=== PATIENT | female | born 1950 ===

== ENCOUNTER 2018-08-08 07:43 | Emergency (ER) | payer MEDICARE, MEDICAID ==
[2018-08-08 07:43] VITALS: BMI 30.4
[2018-08-08 08:10] VITALS: RESP 18; TEMP 100.3
--- NOTE | 2018-08-08 08:39 | C.PDOC ---
History Of Present Illness 67 Y/O FEMALE PRESENTS TO ED WITH C/O SUPRAPUBIC PAIN AND DYSURIA FOR "SEVERAL DAYS" ASSOCIATED WITH LOWER BACK PAIN FOR 1 WEEK AND SUBJECTIVE FEVER. PATIENT ALSO REPORTS NAUSEA AND DENIES DIARRHEA, VOMITING, HEMATURIA, URINARY FREQUENCY OR ANY OTHER COMPLAINTS AT THIS TIME. SUPRAPUB PAIN, DYSURIA X SEV DAYS, LBP X 1 WK. +SUBJ FEVER. +NAUSEA. PSH NEG ABD. EXAM NONTOXIC ABD +SUPRAPUB TEND MOD SOFT NO R/G REMAINDER NEG Time Seen by Provider: 08/08/18 08:15 Chief Complaint (Nursing): Abdominal Pain History Per: Patient History/Exam Limitations: no limitations Onset/Duration Of Symptoms: Days Current Symptoms Are (Timing): Still Present Quality Of Discomfort: "Pain" Past Medical History Reviewed: Historical Data, Nursing Documentation, Vital Signs Vital Signs: Last Vital Signs Temp 100.3 F H 08/08/18 08:06 Pulse 85 08/08/18 08:06 Resp 18 08/08/18 08:06 BP 112/61 08/08/18 08:06 Pulse Ox 96 08/08/18 08:06 - Medical History PMH: Asthma (NO MEDS; NO INHALER), Diabetes, HTN, Hypercholesterolemia Surgical History: CABG, Coronary Stent - [facility] Procedures ESOPHAGOGASTRODUODENOSCOPY [EGD] W/CLOSED BIOPSY (07/18/13) Family History: States: No Known Family Hx - Social History Hx Tobacco Use: No Hx Alcohol Use: No Hx Substance Use: No - Immunization History Hx Tetanus Toxoid Vaccination: No Hx Influenza Vaccination: No Hx Pneumococcal Vaccination: No Review Of Systems Constitutional: Positive for: Fever. Negative for: Chills Gastrointestinal: Positive for: Abdominal Pain. Negative for: Nausea, Vomiting Genitourinary: Positive for: Dysuria. Negative for: Frequency, Hematuria, Vaginal Discharge, Vaginal Bleeding Musculoskeletal: Positive for: Back Pain Physical Exam - Physical Exam Appears: Non-toxic, No Acute Distress Skin: Warm, Dry, No Rash Head: Atraumatic, Normacephalic Eye(s): bilateral: Normal Inspection Oral Mucosa: Moist Neck: Supple Cardiovascular: Rhythm Regular Respiratory: Normal Breath Sounds, No Rales, No Rhonchi, No Wheezing Gastrointestinal/Abdominal: Soft, Tenderness (suprapubic), No Guarding, No Rebound Back: No CVA Tenderness Neurological/Psych: Oriented x3, Normal Speech, Normal Cognition ED Course And Treatment - Laboratory Results Result Diagrams: 08/08/18 08:47 08/08/18 08:47 O2 Sat by Pulse Oximetry: 96 (RA) Pulse Ox Interpretation: Normal Disposition Counseled Patient/Family Regarding: Studies Performed, Diagnosis, Need For Followup, Rx Given - Disposition Referrals: YOUR,PMD [Other] Disposition: HOME/ ROUTINE Disposition Time: 09:33 Condition: IMPROVED Prescriptions: Amoxicillin/Clavulanate [Augmentin 875 MG-125 MG] 1 tab PO BID #28 tab Ibuprofen [Motrin] 600 mg PO Q6 #30 tab Phenazopyridine HCl [Pyridium] 200 mg PO BID #6 tablet Instructions: Kidney Infection (DC) Forms: [facility] [facility] (Filipino) - Clinical Impression Clinical Impression: UTI (urinary tract infection) - Scribe Statement The provider has reviewed the documentation as recorded by the Scribwade Sewell All medical record entries made by the Scribe were at my direction and personally dictated by me. I have reviewed the chart and agree that the record accurately reflects my personal performance of the history, physical exam, m edical decision making, and the department course for this patient. I have also personally directed, reviewed, and agree with the discharge instructions and disposition.
[2018-08-08 08:52] LABS: BASO # 0.1 K/uL (0.0-0.2); BASO % 0.9 % (0.0-2.0); EOS % 0.1 % (0.0-4.0); HEMOGLOBIN 12.3 g/dL (11.0-16.0); LYMPH # 0.7 K/uL (1.0-4.3); LYMPH % 6.5 % (20.0-40.0); MEAN CORPUSCULAR HEMOGLOBIN 29.9 pg (27.0-31.0); MEAN CORPUSCULAR HGB CONC 33.6 g/dL (33.0-37.0); MEAN PLATELET VOLUME 8.5 fL (7.2-11.7); MONO # 0.5 K/uL (0.0-0.8); NEUT # 9.1 K/uL (1.8-7.0); NEUT % 87.5 % (50.0-75.0); PLATELET COUNT 152 K/uL (130-400); RBC 4.12 Mil/uL (3.80-5.20); WHITE BLOOD COUNT 10.4 K/uL (4.8-10.8)
[2018-08-08 09:01] LABS: BLOOD UREA NITROGEN 16 mg/dL (7-17); GFR NON-AFRICAN AMERICAN > 60
[2018-08-08 09:22] LABS: SQUAMOUS EPITHIAL 10 /hpf (0-5); URINE BACTERIA RARE (<OCC); URINE BILIRUBIN NEGATIVE (NEGATIVE); URINE BLOOD 1+ (NEGATIVE); URINE CLARITY Hazy (Clear); URINE COLOR Yellow (YELLOW); URINE GLUCOSE (UA) NORMAL (Normal); URINE LEUKOCYTE ESTERASE 3+ Leu/uL (Negative); URINE PROTEIN 1+ mg/dL (NEGATIVE); URINE UROBILINOGEN NORMAL mg/dL (0.2-1.0)
[2018-08-08 09:26] LABS: BANDS 7 % (0-2); LYMPHOCYTE 9 % (20-40); MONOCYTE 6 % (0-10); NEUTROPHIL 78 % (50-75); PLATELET ESTIMATE NORMAL (NORMAL); TOTAL CELLS COUNTED 100
[2018-08-08 09:27] LABS: ANISOCYTOSIS SLIGHT; HYPOCHROMIC SLIGHT; POIKILOCYTOSIS SLIGHT
[2018-08-08] MEDS ORDERED: cefTRIAXone IV 1 gm in Dextros 1 GM in Dextrose 5% In Water 50 ML IVPB STA (09:52)
[2018-08-08] MEDS ORDERED: cefTRIAXone 1 gm 1 GM/100 ML BAG IVPB ONE (09:58)
[2018-08-08 10:40] VITALS: BP 107/63; PULSE 83; O2SAT 98
== END 2018-08-08 11:19 | disposition home or self-care (01) ==
LOC: C.ER 07:43
DX: N39.0 Urinary tract infection, site not specified (principal)
CPT/HCPCS: 80048; 81001; 82948; 85025; 87086; 96365; 96375; 99285; J0696; J1885